=== PATIENT | female | born 1985 | race Caucasian/White ===

== ENCOUNTER 2017-03-14 10:35 | Emergency (ER) | payer SELFPAY | END 2017-03-14 13:42 | disposition left against medical advice (07) | LOC: UCEAST 10:35 | DX: M54.9 Dorsalgia, unspecified (principal); Z53.21 Procedure and treatment not carried out due to patient leaving prior to being seen by health care provider ==

== ENCOUNTER 2017-03-14 10:49 | Emergency (ER) | payer SELFPAY | END 2017-03-14 13:39 | disposition left against medical advice (07) | LOC: UCEAST 10:49 | DX: M54.9 Dorsalgia, unspecified (principal); Z53.21 Procedure and treatment not carried out due to patient leaving prior to being seen by health care provider ==

== ENCOUNTER 2017-03-14 15:38 | Emergency (ER) | payer OTHER ==
--- NOTE | 2017-03-14 16:53 | UC ---
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-- - History of Current Complaint Chief Complaint: UCBackPain Stated Complaint: BACK PAIN Time Seen by Provider: 03/14/17 16:50 Hx Obtained From: Patient Hx Last Menstrual Period: 02/28/17 ?: No Onset/Duration: Sudden Onset, Lasting Days, Still Present Timing: Intermittent - waves of pain Severity Initially: Moderate Severity Currently: Moderate Back Pain: Is Diffuse - mid upper back Character: Aching, Spasmodic, Stiffness Aggravating: Movement, Lifting Alleviating: Nothing Associated Signs And Symptoms: Positive: Negative - Allergies/Home Medications Allergies/Adverse Reactions: Allergies Allergy/AdvReac Type Severity Reaction Status Date / Time No Known Allergies Allergy Verified 03/14/17 15:53 Home Medications: Home Medications Amphetamine MIXED SALT TAB* [Adderall TAB*] 20 mg PO DAILY 03/14/17 [History Confirmed 03/14/17] PMH/Surg Hx/FS Hx/Imm Hx Previously Healthy: No Endocrine History Of: Denies: Diabetes, Thyroid Disease Cardiovascular History Of: Denies: Cardiac Disorders, Hypertension Respiratory History Of: Denies: COPD, Asthma GI/ History Of: Denies: Ulcer - Surgical History Surgical History: Yes Surgery Procedure, Year, and Place: Tonsils removed - Family History Known Family History: Positive: None Family History: no cardiovascular issues reported in family lineage - Social History Occupation: Employed Full-time Lives: With Family Alcohol Use: Occasionally Substance Use Type: None Smoking Status (MU): Light Every Day Tobacco Smoker Review of Systems Constitutional: Negative Skin: Negative Eyes: Negative ENT: Negative Respiratory: Negative Cardiovascular: Negative Gastrointestinal: Negative Genitourinary: Negative Motor: Negative Neurovascular: Negative Musculoskeletal: Myalgia - mid and upper back Neurological: Negative Psychological: Negative All Other Systems Reviewed And Are Negative: Yes Physical Exam Triage Information Reviewed: Yes Appearance: Well-Appearing, No Pain Distress, Well-Nourished Vital Signs: Initial Vital Signs Temp 97.9 F 03/14/17 15:49 Pulse 88 03/14/17 15:49 Resp 16 03/14/17 15:49 BP 147/92 03/14/17 15:49 Pulse Ox 100 03/14/17 15:49 Vital Signs Reviewed: Yes Eye Exam: Normal Eyes: Positive: Conjunctiva Clear ENT Exam: Normal ENT: Positive: Normal ENT inspection, Hearing grossly normal, Other:. Negative : Nasal congestion, Nasal drainage, Trismus, Muffled/hoarse voice Dental Exam: Normal Neck exam: Normal Neck: Positive: Supple, Nontender, No Lymphadenopathy Respiratory Exam: Normal Respiratory: Positive: Chest non-tender, Lungs clear, Normal breath sounds, No respiratory distress, No accessory muscle use Cardiovascular Exam: Normal Cardiovascular: Positive: RRR, No Murmur, Pulses Normal, Brisk Capillary Refill Musculoskeletal Exam: Normal Musculoskeletal: Positive: Strength Intact, ROM Intact, No Edema Neurological Exam: Normal Neurological: Positive: Alert, Muscle Tone Normal, Fatigued Psychological Exam: Normal Skin Exam: Normal Back Pain Course/Dx - Course Course Of Treatment: flexeril, antiinflammatories, core strengthening exercises , follow back pain and blood pressure with pcp - Differential Dx/Diagnosis Differential Diagnosis/HQI/PQRI: Herniated Disc, Renal Colic, Strain, Sprain Provider Diagnoses: Muscle strain/spasm mid upper back, High Blood Pressure with Dx of hypertension Discharge - Discharge Plan Condition: Stable Disposition: HOME Prescriptions: Cyclobenzaprine TAB* [Flexeril 10 MG TAB*] 10 mg PO TID PRN #15 tab PRN Reason: pain Patient Education Materials: DASH Eating Plan (ED), Hypertension (ED), Muscle Spasm (ED), Back Pain (ED), Core Strengthening Exercises (GEN) Forms: *Work Release Referrals: [facility] [place] [facility] [Outside] - 5 Days
== END 2017-03-14 18:03 | disposition home or self-care (01) ==
LOC: UCEAST 15:38
DX: S29.012A Strain of muscle and tendon of back wall of thorax, initial encounter (principal); X58.XXXA Exposure to other specified factors, initial encounter; I10 Essential (primary) hypertension
CPT/HCPCS: 81003; 84702; 99212; G0463

== ENCOUNTER 2018-04-13 21:01 | Emergency (ER) | payer SELFPAY ==
[2018-04-13 21:28] VITALS: BP 138/78
--- NOTE | 2018-04-13 22:19 | UC ---
Complaint Female HPI - HPI Summary HPI Summary: She is not sure but states she possibly left a tampon in vagina for the past 2 days as she noticed an odor coming from vagina. Had intercourse yesterday without pain or discharge from vagina, states it was protected. She denies rash , fever or chills. Denies PMH. She is on last days of her menses - History Of Current Complaint Chief Complaint: UCGU Stated Complaint: STOMACH PAIN Time Seen by Provider: 04/13/18 21:55 Hx Obtained From: Patient Hx Last Menstrual Period: 04/07/18 ?: No Onset/Duration: Sudden Onset, Lasting Days Severity Initially: Mild Severity Currently: Mild Pain Intensity: 4 Character: Not Applicable Aggravating Factor(s): Nothing Associated Signs And Symptoms: Positive: Negative - Risk Factors Ectopic Risk Factor: Negative Ovarian Torsion Risk Factor: Negative - Allergies/Home Medications Allergies/Adverse Reactions: Allergies Allergy/AdvReac Type Severity Reaction Status Date / Time No Known Allergies Allergy Verified 04/13/18 21:17 Home Medications: Home Medications NK [No Home Medications Reported] 04/13/18 [History Confirmed 04/13/18] PMH/Surg Hx/FS Hx/Imm Hx Previously Healthy: Yes - Surgical History Surgical History: Yes Surgery Procedure, Year, and Place: Tonsils removed - Family History Known Family History: Positive: None Family History: no cardiovascular issues reported in family lineage - Social History Alcohol Use: Occasionally Substance Use Type: None Smoking Status (MU): Light Every Day Tobacco Smoker Review of Systems Constitutional: Negative Genitourinary: Vaginal/Penile Discharge All Other Systems Reviewed And Are Negative: Yes Physical Exam Triage Information Reviewed: Yes Appearance: Well-Appearing, No Pain Distress, Well-Nourished Vital Signs: Initial Vital Signs Temp 98.8 F 04/13/18 21:10 Pulse 67 04/13/18 21:10 Resp 18 04/13/18 21:10 BP 138/78 04/13/18 21:10 Pulse Ox 100 04/13/18 21:10 Vital Signs Reviewed: Yes Eyes: Positive: Conjunctiva Clear ENT: Positive: Hearing grossly normal Neck: Positive: Supple Respiratory: Positive: Chest non-tender Cardiovascular: Positive: Pulses Normal, Brisk Capillary Refill Abdomen Description: Positive: Nontender Bowel Sounds: Positive: Present Pelvic Exam: Positive: External Exam Normal, Speculum Exam Normal, Bimanual Exam Normal, No Cerv. Motion Tender, No Masses, Other - no foreign body visible by speculum examination or by manual palpation twice Musculoskeletal: Positive: Strength Intact, ROM Intact, No Edema Complaint Female Dx - Course Course Of Treatment: patient who comes to believing she has not removed tampon for the past 2 days, no foreign body found on exam, cultures obtained for gc/chlamydia, trichomonas and BV due to complains of vaginal smell today. Will follow up on results. - Differential Dx/Diagnosis Provider Diagnoses: vaginitis Discharge - Sign-Out/Discharge Documenting (check all that apply): Discharge/Admit/Transfer - Discharge Plan Condition: Good Disposition: HOME Patient Education Materials: Vaginitis (ED) Referrals: No Primary Care Phys,NOPCP [Primary Care Provider] - [facility] [place] [facility] [Outside] - Billing Disposition and Condition Condition: GOOD Disposition: Home
--- NOTE | 2018-04-15 09:15 | UC ---
- Progress Note Progress Note: Please call patient --Let her know she is positive for Gardnerella ( a not sexually transmitted common vaginal infection) Rx with Flagyl 500mg po Bid for 7 days---wait to start until no alcohol for 48 hours then to alcohol until after antibiotic is completed for 48 hours Discharge - Sign-Out/Discharge Documenting (check all that apply): Post-Discharge Follow Up - Discharge Plan Condition: Good Disposition: HOME Patient Education Materials: Vaginitis (ED) Referrals: [facility] [place] [facility] [Outside] No Primary Care Phys,NOPCP [Primary Care Provider] - - Billing Disposition and Condition Condition: GOOD Disposition: Home
== END 2018-04-13 22:35 | disposition home or self-care (01) ==
LOC: UCEAST 21:01
DX: N76.0 Acute vaginitis (principal); B96.89 Other specified bacterial agents as the cause of diseases classified elsewhere; F17.200 Nicotine dependence, unspecified, uncomplicated
CPT/HCPCS: 87480; 87491; 87510; 87591; 87661; 99212; G0463

== ENCOUNTER 2018-06-09 15:55 | Emergency (ER) | payer SELFPAY ==
[2018-06-09 16:46] VITALS: BP 131/87
--- NOTE | 2018-06-09 18:18 | UC ---
Complaint Female HPI - HPI Summary HPI Summary: 32 y/o female presents to the urgent care c/o pelvic cramp w/ her menstrual cycle for the past 5 days. Pt states this morning when she woke up she noticed numbness and tingling sensation over the left arm and left lower leg. Numbness is progressing when she lays down, but it is better when she walks. Pelvic pain is 7/10 sharp specially in the left side. Her menstrual cycles are regular. She states vaginal bleeding is normal using only 1 pad/day. 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 Pt states she feels a cracking sound in her back when she raises her left leg. Pt denies facial numbness or drooping, SCHULTE, neck pain, SOB, chest pain, muscle pain. N/V/D, vaginal discharge or Hx of ovarian cysts. Pt has not taking anything to alleviate symptoms. - History Of Current Complaint Chief Complaint: UCAbdominalPain Stated Complaint: CRAMPS STOMACH INTO LEGS Time Seen by Provider: 06/09/18 18:16 Hx Obtained From: Patient Hx Last Menstrual Period: [id number] Onset/Duration: Gradual Onset, Lasting Days - 5 days, Still Present, Worse Since - today w/ left arm and left leg numbness Timing: Constant Severity Initially: Mild Severity Currently: Severe Pain Intensity: 9 - pelvic pain Pain Scale Used: 0-10 Numeric Character: Cramping Aggravating Factor(s): Movement Alleviating Factor(s): Position Associated Signs And Symptoms: Positive: Negative. Negative: Fever, Back Pain, Nausea, Genital Swelling - Risk Factors Ectopic Risk Factor: Negative Ovarian Torsion Risk Factor: Negative - Allergies/Home Medications Allergies/Adverse Reactions: Allergies Allergy/AdvReac Type Severity Reaction Status Date / Time No Known Allergies Allergy Verified 06/09/18 20:49 Home Medications: Home Medications NK [No Home Medications Reported] 06/09/18 [History Confirmed 06/09/18] PMH/Surg Hx/FS Hx/Imm Hx Previously Healthy: Yes - Pt denies PMHX - Surgical History Surgical History: Yes Surgery Procedure, Year, and Place: Tonsils removed - Family History Known Family History: Positive: Diabetes Family History: no cardiovascular issues reported in family lineage - Social History Occupation: Employed Full-time Lives: With Family Alcohol Use: Occasionally Substance Use Type: None Smoking Status (MU): Light Every Day Tobacco Smoker Review of Systems Constitutional: Negative Skin: Negative Eyes: Negative ENT: Negative Respiratory: Negative Cardiovascular: Negative Gastrointestinal: Negative Genitourinary: Other - pelvic cramping pain Motor: Negative Neurovascular: Negative Musculoskeletal: Negative Neurological: Paresthesia - left arm and left leg, Numbness - left arm and left leg Psychological: Negative Is Patient Immunocompromised?: No All Other Systems Reviewed And Are Negative: Yes Physical Exam - Summary Physical Exam Summary: Vital Signs Reviewed: Yes General: well developed, well nourished old female sitting in the examianing table w/o any apparent respiratory distress. Eyes: Positive: Conjunctiva Clear - PERRLA, EOMI, fundi grossly normal ENT: Positive: Normal ENT inspection, Hearing grossly normal, Pharynx normal, TMs normal - B/L external ear canal clear, B/L TM's WNL, Other: - no maxillary or frontal sinus tenderness on percussion. Negative Hugo-hallpike maneuver. Negative: Tonsillar swelling, Tonsillar exudate Dental Exam: Normal Neck: Positive: Supple, Nontender, No Lymphadenopathy Respiratory: Positive: Chest non-tender, Lungs clear, Normal breath sounds Cardiovascular: Positive: RRR, No Murmur, Pulses Normal, Brisk Capillary Refill Abdomen Description: Positive: Nontender, No Organomegaly, Soft. Negative: CVA Tenderness (R), CVA Tenderness (L) Bowel Sounds: Positive: Present Musculoskeletal Exam: Normal Musculoskeletal: Positive: Strength Intact, ROM Intact, No Edema Neurological Exam: Normal Neurological: Positive: Alert, Muscle Tone Normal, -Neuro: A&O x4, GCS 15, CN II-XII intact, no focal neuro deficits, normal [id number] or [id number]-[id number] testing. Romberg neg, no pronator drift, normal rapid alternating movements. Gait is normal, Motor and sensory exam nonfocal. Reflexes are symmetric. Speech is clear and gait steady. Psychological Exam: Normal Skin Exam: Normal Triage Information Reviewed: Yes Vital Signs: Initial Vital Signs Temp 97.9 F 06/09/18 16:40 Pulse 67 06/09/18 16:40 Resp 16 06/09/18 16:40 BP 131/87 06/09/18 16:40 Pulse Ox 100 06/09/18 16:40 Complaint Female Dx - Course Course Of Treatment: 32 y/o female presents to the urgent care c/o pelvic cramp w/ her menstrual cycle for the past 5 days. Pt states this morning when she woke up she noticed numbness and tingling sensation over the left arm and left lower leg. Numbness is progressing when she lays down, but it is better when she walks. Pelvic pain is 7/10 sharp specially in the left side. Her menstrual cycles are regular. She states vaginal bleeding is normal using only 1 pad/day. 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 Pt states she feels a cracking sound in her back when she raises her left leg. Pt denies facial numbness or drooping, SCHULTE, neck pain, SOB, chest pain, muscle pain. N/V/D, vaginal discharge or Hx of ovarian cysts. Pt has not taking anything to alleviate symptoms. Hx obtained. Pt is A&O x4, GCS 15, CN II-XII intact, no focal neuro deficits, normal azjroc-ip-[id number] or gvyl-po-ayzo testing. Romberg neg , no pronator drift, normal rapid alternating movements. Gait is normal, Motor and sensory exam nonfocal. Reflexes are symmetric. Speech is clear and gait steady. However Pt states numbness constant. UA ordered: only trace of blood. Pt 's symptoms disccused w/ Dr West. She evaluated Pt and she recommended Pt to go to the ER for further work up to r/o any neurological abnormality. Pt offered ambulance transfer. Pt explained the risks of not taking the ambulance transfer. Pt declined ambulance transfer and states her friend will take her to the ER by private car. I spoke to COREY Fink at the [facility] [place] [facility] in regards to Pt's presenting symptoms. She accepted Pt. Pt left the clinic Hemodynamically stable, A&OX3 and ambulating normally. - Differential Dx/Diagnosis Differential Diagnosis/HQI/PQRI: Cervicitis, Ovarian Cyst, Ovarian Torsion, Pelvic Inflammatory Disease, , Urinary Tract Infection, Other - hemiparesis, stroke Provider Diagnoses: 1- Acute pelvic pain. 2- Left side arm and lower leg paresthesia Discharge - Sign-Out/Discharge Documenting (check all that apply): Patient Departure - Highly recommended to go to the [facility] [place] ER for further management in her presenting symptoms. - Discharge Plan Condition: Stable Disposition: HOME-RECOMMEND TO ED Patient Education Materials: Pelvic Pain in Women (ED), Paresthesia (ED) Forms: *Work Release Referrals: No Primary Care Phys,NOPCP [Primary Care Provider] - Additional Instructions: I think you need a higher level or care for your presenting symptoms. I highly recommend you to go to the ER for further evaluation and treatment. The risks of not going can be stroke, hemiparesis, , heart attack, etc. I spoke to the ER COREY Fink. . They are expecting you. - Billing Disposition and Condition Condition: STABLE Disposition: Home-Recommend to ED
[2018-06-09] MEDS ORDERED: Famotidine TAB* 20 MG PO ONE (18:37)
[2018-06-09] MEDS ORDERED: Ibuprofen TAB* 400 MG PO ONE (18:37)
== END 2018-06-09 19:20 | disposition home health service (06) ==
LOC: UCEAST 15:55
DX: R20.2 Paresthesia of skin (principal); R10.2 Pelvic and perineal pain; F17.210 Nicotine dependence, cigarettes, uncomplicated
CPT/HCPCS: 81003; 99212; A9270-GY; G0463

== ENCOUNTER 2018-06-09 20:44 | Emergency (ER) | payer SELFPAY ==
--- NOTE | 2018-06-09 21:24 | ED ---
Neurological HPI - HPI Summary HPI Summary: This is Pepe das documenting for attending physician Jr Sanford MD. This patient is a 32 year old F presenting to [facility] with a chief complaint of constant numbness in the left leg and left arm simultaneously that has been there all day. She states it is not the entire extremity and it is centered around her elbow and her knee and describes the numbness as decreased sensation not complete loss of sensation. The patient rates the pain 0/10 in severity. Patient denies weakness, fever, arthralgia, irregular period, large consumption of diet soda, SCHULTE, LOC, and vision changes. Pt states that she is menstruating and believed it was due to cramping. Pt ambulated into the ED and to the bathroom prior to initial assessment. Pt was seen ad [facility] [employer] and was sent here to r/o stroke. Pt has not gotten recent botox, denies lead exposure, and eating from [employer]alia cans - History of Current Complaint Chief Complaint: EDNeurologicalDeficit Stated Complaint: PAIN AND NUMBNESS ON LT ARM AND LEG Time Seen by Provider: 06/09/18 21:01 Hx Obtained From: Patient Hx Last Menstrual Period: [id number] Onset/Duration: Still Present Timing: Constant Onset Severity: Mild Current Severity: Mild Pain Intensity: 0 Pain Scale Used: 0-10 Numeric Syncope Context: Loss of Consciousness: No Associated Signs and Symptoms: Positive: Numbness - Allergy/Home Medications Allergies/Adverse Reactions: Allergies Allergy/AdvReac Type Severity Reaction Status Date / Time No Known Allergies Allergy Verified 06/09/18 20:49 PMH/Surg Hx/FS Hx/Imm Hx Endocrine/Hematology History: Denies: Hx Diabetes, Hx Thyroid Disease Cardiovascular History: Denies: Hx Hypertension Respiratory History: Denies: Hx Asthma, Hx Chronic Obstructive Pulmonary Disease (COPD) GI History: Denies: Hx Ulcer - Surgical History Surgery Procedure, Year, and Place: Tonsils removed Infectious Disease History: No Infectious Disease History: Denies: Hx Clostridium Difficile, Hx Hepatitis, Hx Human Immunodeficiency Virus (HIV), Hx of Known/Suspected MRSA, Hx Shingles, Hx Tuberculosis, Traveled Outside the [place] in Last 30 Days - Family History Known Family History: Positive: Diabetes, Other - denies CVA Family History: no cardiovascular issues reported in family lineage - Social History Alcohol Use: Occasionally Substance Use Type: Reports: None Smoking Status (MU): Light Every Day Tobacco Smoker Review of Systems Negative: Fever Negative: Blurred Vision Genitourinary: Negative - irregular period Negative: Arthralgia Positive: Numbness. Negative: Headache, Weakness, Syncope All Other Systems Reviewed And Are Negative: Yes Physical Exam - Summary Physical Exam Summary: Appearance: Well appearing, no pain distress Skin: warm, dry, reflects adequate perfusion Head/face: normal Eyes: EOMI, KEVIN ENT: normal Neck: supple, non-tender Respiratory: CTA, breath sounds present Cardiovascular: RRR, pulses symmetrical Abdomen: non-tender, soft Bowel Sounds: present Musculoskeletal: normal, strength/ROM intact Neuro: normal, sensory motor intact, A&Ox3, normal temperature sensation Triage Information Reviewed: Yes Vital Signs On Initial Exam: Initial Vitals Temp Pulse Resp BP Pulse Ox 97.8 F 74 18 144/96 97 06/09/18 20:46 06/09/18 20:46 06/09/18 20:46 06/09/18 20:46 06/09/18 20:46 Vital Signs Reviewed: Yes Diagnostics - Vital Signs Vital Signs Temp Pulse Resp BP Pulse Ox 06/09/18 20:46 97.8 F 74 18 144/96 97 - Laboratory Result Diagrams: 06/09/18 21:32 06/09/18 21:32 Lab Statement: Any lab studies that have been ordered have been reviewed, and results considered in the medical decision making process. NIH Scale - NIH Scale Level of Consciousness: Alert/Keenly Responsive Ask Patient the Month and His/Her Age: Both Correct Ask Pt to Open/Close Eyes and Bowling Pin Refinisher/Release Non-Paretic Hand: Both Correctly Best Gaze (Only Horizontal Eye Movement): Normal Visual Field Testing: No Visual Loss Facial Paresis-Pt to Smile & Close Eyes or Grimace Symmetry: Normal/Symmetrical Motor Function - Right Arm: No Drift-Holds 10 Seconds Motor Function - Left Arm: No Drift-Holds 10 Seconds Motor Function - Right Leg: No Drift-Holds 10 Seconds Motor Function - Left Leg: No Drift-Holds 10 Seconds Limb Ataxia-Must be out of Proportion to Weakness Present: Absent Sensory (Use Pinprick to Test Arms/Legs/Trunk/Face): Normal Best Language (Describe Picture, Name Items): No Aphasia Dysarthria (Read Several Words): Normal Extinction and Inattention: No Abnormality Total Score: 0 Re-Evaluation - Re-Evaluation First Eval Change: Improved - Patient to be discharged with no symptoms present Course/Dx - Course Course Of Treatment: Patient presents with bilateral numbness in the areas of elbows and knees as well as the faced bilaterally. Her NIH stroke score is 0. She is not currently having any symptoms. Her electrolytes are all normal aside from a magnesium that is slightly low at 1.8. She will take multivitamin at home. She was given [facility] follow-up. She will also follow up with her primary care provider. - Differential Dx Differential Diagnoses Neuro: Positive: Other - Metabolic abnormality, electrolyte abnormality, Lyme disease, migraine, MS - Diagnoses Provider Diagnoses: Paresthesia Discharge - Sign-Out/Discharge Documenting (check all that apply): Patient Departure - Discharge Plan Condition: Stable Disposition: HOME Patient Education Materials: Paresthesia (ED) Referrals: [facility] [Outside] [facility] [place] [facility] [Outside] Additional Instructions: Take a multivitamin every day. Return if weakness, worsening numbness, difficulty with speech or vision, new symptoms or other concerns. Call the [facility] clinic first thing in the morning to follow-up. - Billing Disposition and Condition Condition: STABLE Disposition: Home Attestation Statement Scribe Attestation: This is Pepe das documenting for attending physician Jr Sanford MD. User Type: Provider with Scribe Provider Attestation: The documentation recorded by the scribe accurately reflects the service I personally performed and the decisions made by me.
[2018-06-09 21:37] LABS: ABS Basophils 0.1 10^3/ul (0-0.2); ABS Eosinophils 0 10^3/ul (0-0.6); ABS Lymphocytes 1.9 10^3/ul (1.0-4.8); ABS Monocytes 0.6 10^3/ul (0-0.8); ABS Neutrophils 5.8 10^3/ul (1.5-7.7); ABS Nucleated RBC 0 10^3/ul; Eosinophil % 0.5 % (0-6); Hematocrit 42 % (35-47); Hemoglobin 14.2 g/dl (12.0-16.0); Lymphocyte % 22.3 % (25-47); Mean Corpuscular HGB Conc 34 g/dl (31-36); Mean Corpuscular Hemoglobin 31 pg (27-31); Mean Corpuscular Volume 90 fL (80-97); Mean Platelet Volume 8.8 um3 (7.4-10.4); Nucleated Red Blood Cells % 0.1; Platelet Count 178 10^3/ul (150-450); Red Blood Count 4.61 10^6/ul (4.00-5.40); Red Cell Distribution Width 14 % (10.5-15); White Blood Count 8.4 10^3/ul (3.5-10.8)
[2018-06-09 21:57] LABS: EGFR Non-African American 99.2 (>60)
[2018-06-09 22:40] VITALS: BP 146/84
== END 2018-06-09 22:39 | disposition home or self-care (01) ==
LOC: ED 20:44
DX: R20.2 Paresthesia of skin (principal); F17.200 Nicotine dependence, unspecified, uncomplicated
CPT/HCPCS: 36415; 80053; 83735; 84100; 85025; 86618; 99282

== ENCOUNTER 2018-12-01 21:50 | Emergency (ER) | payer SELFPAY ==
[2018-12-01 22:23] VITALS: BP 118/72
--- NOTE | 2018-12-01 22:37 | UC ---
Ear Complaint HPI - HPI Summary HPI Summary: 2 DAYS OF WORSENING PAIN, DRAINAGE AND HEARING LOSS IN BOTH HER EARS. RIGHT EAR WORSE THAN LEFT. WENT TO [facility] YESTERDAY AND WAS PRESCRIBED AMOXICILLIN PO AND CORTISPORIN EAR DROPS FOR A RIGHT-SIDED OTITIS EXTERNA. SHE REPORTS THAT TODAY SHE HAS SOME SWELLING IN HER FACE JUST ANTERIOR TO HER EARS THAT IMPROVED WITH BENADRYL. STATES THE PAIN IN HER EARS HAS GOTTEN WORSE. NO FEVER. NO URI SYMPTOMS. STATES SHE NORMALLY USES QTIPS IN HER EARS DAILY. - History of Current Complaint Chief Complaint: UCEar Stated Complaint: EAR PAIN Time Seen by Provider: 12/01/18 21:57 Hx Obtained From: Patient Hx Last Menstrual Period: [id number] Onset/Duration: Gradual Onset, Lasting Days, Still Present Severity Initially: Moderate Severity Currently: Moderate Pain Intensity: 8 Pain Scale Used: 0-10 Numeric Aggravating Factors: Nothing Alleviating Factors: Nothing Associated Signs/Symptoms: Positive: Discharge, Hearing Loss, Swelling @. Negative: URI Symptoms - Allergies/Home Medications Allergies/Adverse Reactions: Allergies Allergy/AdvReac Type Severity Reaction Status Date / Time No Known Allergies Allergy Verified 06/09/18 20:49 Home Medications: Home Medications Amoxicillin 875 mg PO BID 12/01/18 [History Confirmed 12/01/18] PMH/Surg Hx/FS Hx/Imm Hx Previously Healthy: Yes - Surgical History Surgical History: Yes Surgery Procedure, Year, and Place: Tonsils removed - Family History Known Family History: Positive: Diabetes, Other - denies CVA - Social History Alcohol Use: Occasionally Substance Use Type: None Smoking Status (MU): Former Smoker Review of Systems All Other Systems Reviewed And Are Negative: Yes Constitutional: Positive: Negative ENT: Positive: Ear Ache, Other - HEARING LOSS, DRAINAGE FROM EAR Respiratory: Positive: Negative Cardiovascular: Positive: Negative Gastrointestinal: Positive: Negative Physical Exam Triage Information Reviewed: Yes Appearance: Well-Appearing, No Pain Distress, Well-Nourished Vital Signs: Initial Vital Signs Temp 97.5 F 12/01/18 22:17 Pulse 63 12/01/18 22:17 Resp 18 12/01/18 22:17 BP 118/72 12/01/18 22:17 Pulse Ox 97 12/01/18 22:17 Vital Signs Reviewed: Yes Eyes: Positive: Conjunctiva Clear ENT: Positive: Hearing grossly normal, Pharynx normal, Other - BILATERAL EAC EDEMATOUS WITH DEBRIS AND FLUID. RIGHT>LEFT. ERYTHEMA AND FLAKY SKIN IN CONCHAE CAVUM. NO CLEAR FACIAL EDEMA. Neck: Positive: Supple, Nontender, No Lymphadenopathy Respiratory: Positive: No respiratory distress, No accessory muscle use Cardiovascular: Positive: Pulses Normal Abdomen Description: Positive: Soft Musculoskeletal: Positive: No Edema Neurological: Positive: Alert Psychological: Positive: Age Appropriate Behavior Skin: Positive: Other - FLAKY ERYTHEMATOUS SKIN IN BILATERAL CONCHAE CAVUM Ear Complaint Course/Dx - Course Course Of Treatment: I SUSPECT THE PATIENT MAY BE HAVING AN ALLERGIC REACTION TO THE NEOMYCIN IN THE CORTISPORIN EAR DROPS. HAVE ADVISED SHE STOP THESE DROPS AND HAVE GIVEN CIPRODEX OTIC INSTEAD. CONTINUE AMOXICILLIN PRESCRIBED. OKAY FOR OTC ANTIHISTAMINES FOR POSSIBLE ALLERGIC REACTION. PATIENT DENIES ANY AIRWAY COMPROMISE OR RASH. ADVISED FOLLOW-UP WITH ENT THIS WEEK FOR RECHECK OF HER BILATERAL OTITIS. - Differential Dx/Diagnosis Provider Diagnosis: Otitis externa of both ears Discharge - Sign-Out/Discharge Documenting (check all that apply): Patient Departure All imaging exams completed and their final reports reviewed: No Studies - Discharge Plan Condition: Stable Disposition: HOME Prescriptions: Ciproflox/Dexameth OTIC.SUSP* [Ciprodex Otic*] 4 drop BOTH EARS BID #1 bottle Patient Education Materials: Otitis Externa (ED) Referrals: [facility] [Outside] - If Needed Additional Instructions: YOU HAVE AN EXTERNAL EAR INFECTION IN BOTH OF YOUR EARS. YOU MAY ALSO BE EXPERIENCING AN ALLERGIC REACTION TO THE NEOSPORIN IN THE EAR DROPS YOU HAVE BEEN USING. STOP THESE DROPS. START CORTISPORIN EAR DROPS TOMORROW. CONTINUE WITH AMOX PRESCRIBED. NO QTIPS! TAKE OTC ANTIHISTAMINE DAILY (CLARITIN (LORATADINE), ZYRTEC (CETIRIZINE) OR NAVYA (FEXOFENADINE) IN THE MORNING, 25-50MG BENADRYL AT NIGHT) FOLLOW-UP WITH ENT IF YOU ARE NOT IMPROVING OVER THE NEXT FEW DAYS. [facility] [place] AND [place] [address] [facility] [phone] FOR HELP WITH APPLYING FOR INSURANCE COVERAGE CONTACT AN INSURANCE NAVIGATOR AT THE [facility] OR [address] [phone] [email or web address] WALK IN HOURS SUNDAY 2P-6P SUNDAY 4P-8P [place] [id number] [place], [place] - Billing Disposition and Condition Condition: STABLE Disposition: Home
== END 2018-12-01 22:40 | disposition home or self-care (01) ==
LOC: UCEAST 21:50
DX: H60.93 Unspecified otitis externa, bilateral (principal); Z87.891 Personal history of nicotine dependence
CPT/HCPCS: 99212; G0463